=== PATIENT | male | born 1975 | race Caucasian/White ===

== ENCOUNTER 2020-01-11 22:04 | Emergency (ER) | payer SELFPAY ==
[2020-01-11] MEDS ORDERED: Boostrix 0.5 ML VIAL ONE (22:18)
[2020-01-11] MEDS ORDERED: Morphine 4 MG/ML VIAL ONE (22:27)
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
[2020-01-11] MEDS ORDERED: Lidocaine 1% (PF) 30 ML VIAL ONE (23:18)
== END 2020-01-12 00:16 | disposition home or self-care (01) ==
LOC: ERS 22:04
DX: S61.432A Puncture wound without foreign body of left hand, initial encounter (principal); W34.00XA Accidental discharge from unspecified firearms or gun, initial encounter
CPT/HCPCS: 12002; 90471; 90715; 96365; 96366; 96375; J0690; J2001; J2270